=== PATIENT | male | born 1960 ===

== ENCOUNTER 2017-12-08 21:20 | Emergency (ER) | payer SELFPAY | END 2017-12-09 00:33 | disposition home or self-care (01) | LOC: EDSEX 21:20 → D.ER 21:20 | DX: S00.83XA Contusion of other part of head, initial encounter (principal); S20.219A Contusion of unspecified front wall of thorax, initial encounter; V49.9XXA Car occupant (driver) (passenger) injured in unspecified traffic accident, initial encounter; Y93.89 Activity, other specified; Y92.410 Unspecified street and highway as the place of occurrence of the external cause; S06.0X0A Concussion without loss of consciousness, initial encounter; S02.5XXA Fracture of tooth (traumatic), initial encounter for closed fracture ==